=== PATIENT | male | born 1980 | race Caucasian/White ===

== ENCOUNTER 2018-04-15 14:57 | Inpatient (IN) | payer BC ==
[2018-04-15 16:23] LABS: HEMATOCRIT 48.4 % (42.0-52.0); MEAN CORPUSCULAR HEMOGLOBIN 29.9 pg (27.0-33.0); MEAN CORPUSCULAR HGB CONC 35.1 g/dl (32.0-36.5); MEAN CORPUSCULAR VOLUME 85.2 fl (80.0-96.0); PLATELET COUNT, AUTOMATED 283 10^3/uL (150-450); RED BLOOD COUNT 5.68 10^6/uL (4.30-6.10); RED CELL DISTRIBUTION WIDTH 12.5 % (11.5-14.5); WHITE BLOOD COUNT 7.8 10^3/uL (4.0-10.0)
[2018-04-15 16:58] LABS: ACETAMINOPHEN LEVEL < 2.0 UG/ML (10.0-30.0); ALBUMIN 3.9 GM/DL (3.2-5.2); ALBUMIN/GLOBULIN RATIO 1.18 (1.00-1.93); ALKALINE PHOSPHATASE 111 U/L (45-117); ALT/SGPT 51 U/L (12-78); ANION GAP 7 MEQ/L (8-16); AST/SGOT 30 U/L (7-37); BILIRUBIN,DIRECT < 0.1 MG/DL (0.0-0.2); BILIRUBIN,TOTAL 0.3 MG/DL (0.2-1.0); BLOOD UREA NITROGEN 13 MG/DL (7-18); CALCIUM LEVEL 8.9 MG/DL (8.5-10.1); CARBON DIOXIDE LEVEL 28 MEQ/L (21-32); CHLORIDE LEVEL 106 MEQ/L (98-107); CREATININE FOR GFR 1.15 MG/DL (0.70-1.30); ETHYL ALCOHOL (ETHANOL) < 0.003 % (0.000-0.010); GLOMERULAR FILTRATION RATE > 60.0 (>60); GLUCOSE, FASTING 88 MG/DL (70-100); POTASSIUM SERUM 3.6 MEQ/L (3.5-5.1); SALICYLATE LEVEL < 1.7 MG/DL (5.0-30.0); SODIUM LEVEL 141 MEQ/L (136-145); TOTAL PROTEIN 7.2 GM/DL (6.4-8.2)
[2018-04-15 17:52] LABS: AMPHETAMINES LEVEL URINE NEGATIVE (NEGATIVE); BARBITURATES URINE NEGATIVE (NEGATIVE); BENZODIAZEPINES URINE NEGATIVE (NEGATIVE); CANNABINOIDS URINE NEGATIVE (NEGATIVE); COCAINE METABOLITE URINE NEGATIVE (NEGATIVE); METHADONE URINE NEGATIVE (NEGATIVE); OPIATES URINE NEGATIVE (NEGATIVE); PHENCYCLIDINE URINE NEGATIVE (NEGATIVE)
[2018-04-15] MEDS ORDERED: MAALOX 30 ML SUSP *UDC PO (18:30)
[2018-04-15] MEDS ORDERED: ACETAMINOPHEN TAB 650MG DOSE (2X325MG) PO (18:30)
[2018-04-15] MEDS ORDERED: MOM 30ML SUSPENSION UDC PO (18:30)
[2018-04-15] MEDS ORDERED: OLANZapine ORAL DISINTEGRATING TAB 5MG PO (18:30)
[2018-04-15] MEDS: OLANZapine 10 MG TAB PO (21:20)
[2018-04-16] MEDS: SERTRALINE HCL 50 MG TAB PO (16:45)
[2018-04-16] MEDS: LITHIUM CARBONATE 450 MG **CR** TAB PO (22:03)
[2018-04-17] MEDS: LITHIUM CARBONATE 450 MG **CR** TAB PO ×2 (08:55→21:05)
[2018-04-17] MEDS: SERTRALINE HCL 50 MG TAB PO (08:55)
[2018-04-17] MEDS: traZODone 50 MG TAB PO (21:05)
[2018-04-18] MEDS: LITHIUM CARBONATE 450 MG **CR** TAB PO ×2 (08:16→20:12)
[2018-04-18] MEDS: SERTRALINE HCL 50 MG TAB PO ×2 (08:16→12:21)
[2018-04-18] MEDS: traZODone 50 MG TAB PO (20:12)
[2018-04-19] MEDS: LITHIUM CARBONATE 450 MG **CR** TAB PO ×2 (08:12→20:29)
[2018-04-19] MEDS: SERTRALINE 100 MG TAB PO (08:12)
[2018-04-19] MEDS: traZODone 50 MG TAB PO (20:29)
[2018-04-20] MEDS: SERTRALINE 100 MG TAB PO (08:17)
[2018-04-20] MEDS: LITHIUM CARBONATE 450 MG **CR** TAB PO ×2 (08:18→21:26)
[2018-04-20] MEDS: traZODone 50 MG TAB PO (21:26)
[2018-04-21] MEDS: SERTRALINE 100 MG TAB PO (08:46)
[2018-04-21] MEDS: LITHIUM CARBONATE 450 MG **CR** TAB PO (08:46)
== END 2018-04-21 11:00 | disposition home or self-care (01) | DRG 753 ==
LOC: M ED 14:57 → M ED INP 18:23 → M PSY 23:00
DX: F31.9 Bipolar disorder, unspecified (principal); Z91.14 Patient's other noncompliance with medication regimen; F42.9 Obsessive-compulsive disorder, unspecified; Z98.52 Vasectomy status

== ENCOUNTER → 2018-05-12 | Outpatient (REF) | payer BC ==
[~2018-05-12] MED LIST: BACITAB PO; FLAG500T PO; LITH45TASA PO; PENI50TA PO; PERCOCET PO; SENO8.6T10 PO; SERT-138 PO; TRAZO50TA PO
== END ==
LOC: M SFHCPLAZ 11:24
PROVIDERS: ATTEND Family Medicine
DX: F31.9 Bipolar disorder, unspecified (principal); Z13.220 Encounter for screening for lipoid disorders; Z13.1 Encounter for screening for diabetes mellitus

== ENCOUNTER 2020-09-08 11:04 | Emergency (ER) | payer BC, OTHER, SELFPAY ==
[~2020-09-08] VITALS: Ht 190.5 cm; Wt 127.3 kg
[2020-09-08 11:04] VITALS: BP 153/82
[~2020-09-08 11:04] MED LIST changes: +PENI500T PO; -PENI50TA PO; +TRAZ1TAB10 PO; -TRAZO50TA PO
[2020-09-08] MEDS ORDERED: FLUORESCEIN OPHTH 1 MG STRIP OS ONE (13:40)
[2020-09-08] MEDS ORDERED: TETRACAINE 0.5% OPHTH SOLN 4ML OS ONE (13:40)
[2020-09-08] MEDS ORDERED: POLYSOL OS (14:41)
== END 2020-09-08 15:28 | disposition home or self-care (01) ==
LOC: M ED 11:04
DX: H10.9 Unspecified conjunctivitis (principal); F31.9 Bipolar disorder, unspecified; Z79.899 Other long term (current) drug therapy; F17.210 Nicotine dependence, cigarettes, uncomplicated